=== PATIENT | female | born 1955 | race Caucasian/White ===

== ENCOUNTER 2019-01-08 08:33 | Outpatient (CLI) | payer SELFPAY ==
[2019-01-08 08:47] LABS: EOSINOPHILS % 2.1 % (0.0-6.8); MEAN CORPUSCULAR HEMOGLOBIN 30.1 pg (28.0-34.0); MONOCYTES % 7.1 % (0.0-11.0)
[2019-01-08 08:48] LABS: BASOPHILS % 0.4 % (0.0-1.5); NEUTROPHILS # 3.1 # k/uL (1.4-7.7)
[2019-01-08 09:29] LABS: TSH 0.358 mIU/l (0.465-4.685); eGFR (Non-African) > 60
== END 2019-01-08 08:34 ==
LOC: LAB 08:33
PROVIDERS: ATTEND Family Medicine
DX: Z13.220 Encounter for screening for lipoid disorders (principal); E55.9 Vitamin D deficiency, unspecified; R73.9 Hyperglycemia, unspecified
CPT/HCPCS: 36415; 80053; 80061; 82306; 83036; 84439; 84443; 84481; 85025